=== PATIENT | female | born 1960 | race African-American/Black ===

== ENCOUNTER 2018-01-06 11:34 | Emergency (ER) | payer OTHER ==
[~2018-01-06] VITALS: Ht 170.2 cm; Wt 98.0 kg
[~2018-01-06 11:34] MED LIST: MULTCAP OR
[2018-01-06 11:47] VITALS: BP 177/83; PULSE 61; RESP 16; TEMP 98.3; O2SAT 100
--- NOTE | 2018-01-06 11:52 | PD ---
HPI Chief Complaint: Chest Pain Time Seen by Provider: 11:41 Travel History International Travel<30 days: No Contact w/Intl Traveler<30days: No Traveled to known affect area: No History of Present Illness HPI 57-year-old female presents to the ED for evaluation of 5/10 squeezing substernal chest pain. Onset approximately 25 minutes ago. Patient states pain occurred at rest. 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 Patient denies history of hypertension. She denies palpitations, nausea, vomiting, shortness of breath, diaphoresis. She has never smoked. No history of diabetes. Denies familial history of cardiac arrest. The patient states that she took a Xenadrine OTC weight loss medication this morning. She states that she takes it intermittently. PFSH Past Medical History Blood Disorders: No Cancer: No Cardiovascular Problems: No Endocrine: No Genitourinary: No Immune Disorder: No Musculoskeletal: No Neurologic: No Psychiatric: No Reproductive: No Respiratory: No ?: Not : 5 Para: 3 Miscarriage: 0 : 2 Past Surgical History Body Medical Devices: breast implants Section: Yes Social History Alcohol Use: No (OCCL) Tobacco Use: No Substance Use: No Allergies-Medications (Allergen,Severity, Reaction): Coded Allergies: No Known Allergies (Unverified Adverse Reaction, Unknown, 01/06/18) Reported Meds & Prescriptions Reported Meds & Active Scripts Active Omeprazole 10 Mg Cap 10 Mg PO DAILY Review of Systems Except as stated in HPI: all other systems reviewed are Neg Physical Exam Narrative GENERAL: Well-nourished, well-developed female no acute distress. SKIN: Focused skin assessment warm/dry. HEAD: Normocephalic. EYES: No scleral icterus. No injection or drainage. NECK: Supple, trachea midline. No JVD or lymphadenopathy. CARDIOVASCULAR: Regular rate and rhythm without murmurs, gallops, or rubs. CHEST: Nontender throughout without deformity or crepitus. RESPIRATORY: Breath sounds clear and equal bilaterally. No accessory muscle use. GASTROINTESTINAL: Abdomen soft, non-tender, nondistended. Active bowel sounds. MUSCULOSKELETAL: No cyanosis, or edema. Moves extremities spontaneously. Observed to walk with a normal gait. BACK: Nontender without obvious deformity. No CVA tenderness. Data Data Last Documented VS Vital Signs Date Time Temp Pulse Resp B/P (MAP) Pulse Ox O2 Delivery O2 Flow Rate FiO2 01/06/18 12:26 61 16 153/85 (107) 100 Room Air 01/06/18 11:47 98.3 Orders Orders Electrocardiogram (01/06/18 ) Ckmb (Isoenzyme) Profile (01/06/18 11:49) Complete Blood Count With Diff (01/06/18 11:49) Comprehensive Metabolic Panel (01/06/18 11:49) Magnesium (Mg) (01/06/18 11:49) Prothrombin Time / Inr (Pt) (01/06/18 11:49) Act Partial Throm Time (Ptt) (01/06/18 11:49) Troponin I (01/06/18 11:49) Ecg Monitoring (01/06/18 11:49) Bilateral Bp Monitoring (01/06/18 11:49) Iv Access Insert/Monitor (01/06/18 11:49) Oximetry (01/06/18 11:49) Aspirin (Aspirin) (01/06/18 12:00) Nitroglycerin 2% Oint (Nitroglycerin 2% (01/06/18 12:00) Sodium Chloride 0.9% Flush (Ns Flush) (01/06/18 12:00) Sodium Chlorid 0.9% 500 Ml Inj (Ns 500 M (01/06/18 12:00) Chest, Pa & Lat (01/06/18 11:49) CKMB (01/06/18 12:00) CKMB% (01/06/18 12:00) Labs Laboratory Tests Test 01/06/18 12:00 White Blood Count 4.3 TH/MM3 Red Blood Count 4.42 MIL/MM3 Hemoglobin 12.9 GM/DL Hematocrit 39.0 % Mean Corpuscular Volume 88.2 FL Mean Corpuscular Hemoglobin 29.3 PG Mean Corpuscular Hemoglobin Concent 33.2 % Red Cell Distribution Width 14.2 % Platelet Count 208 TH/MM3 Mean Platelet Volume 8.2 FL Neutrophils (%) (Auto) 36.2 % Lymphocytes (%) (Auto) 51.7 % Monocytes (%) (Auto) 9.9 % Eosinophils (%) (Auto) 1.8 % Basophils (%) (Auto) 0.4 % Neutrophils # (Auto) 1.5 TH/MM3 Lymphocytes # (Auto) 2.2 TH/MM3 Monocytes # (Auto) 0.4 TH/MM3 Eosinophils # (Auto) 0.1 TH/MM3 Basophils # (Auto) 0.0 TH/MM3 CBC Comment DIFF FINAL Differential Comment Prothrombin Time 10.3 SEC Prothromb Time International Ratio 1.0 RATIO Activated Partial Thromboplast Time 26.1 SEC Blood Urea Nitrogen 14 MG/DL Creatinine 0.96 MG/DL Random Glucose 96 MG/DL Total Protein 7.5 GM/DL Albumin 4.0 GM/DL Calcium Level 9.1 MG/DL Magnesium Level 2.3 MG/DL Alkaline Phosphatase 88 U/L Aspartate Amino Transf (AST/SGOT) 26 U/L Alanine Aminotransferase (ALT/SGPT) 32 U/L Total Bilirubin 0.3 MG/DL Sodium Level 142 MEQ/L Potassium Level 3.9 MEQ/L Chloride Level 108 MEQ/L Carbon Dioxide Level 26.2 MEQ/L Anion Gap 8 MEQ/L Estimat Glomerular Filtration Rate 72 ML/MIN Total Creatine Kinase 188 U/L Creatine Kinase MB 1.5 NG/ML Troponin I LESS THAN 0.02 NG/ML MDM Medical Decision Making Medical Screen Exam Complete: Yes Emergency Medical Condition: Yes Differential Diagnosis Chest pain versus GERD versus medication side effect versus ACS versus other Narrative Course 57-year-old female presents to the ED for evaluation of 5/10 squeezing substernal chest pain occurring at rest, 25 minutes ago. The patient denies palpitations, nausea, vomiting, shortness of breath, diaphoresis. She has never smoked. No history of diabetes. Denies familial history of cardiac arrest. The patient states that she took a Xenadrine OTC weight loss medication this morning. Heart rate 61, BP 177/83 on presentation. Chest CTA B. Abdomen soft and nontender on exam. IV was established. Patient was administered 325 mg aspirin, 1 inch nitroglycerin paste was applied to the chest. EKG rate 55, sinus bradycardia. OK interval 171, QRS 89, QTC 405 ms. Normal axis. No acute ST changes. Reviewed by Dr. Oneill. CXR: No acute intrathoracic disease per radiology read. Cardiac enzymes negative 1. CBC unremarkable. CMP without concerning abnormalities. INR: 1.1. I reviewed the patient's record. She had a negative stress test in 2004. On recheck patient states that her pain has completely resolved. I discussed the results of the workup with the patient. I recommended that she stay in the chest pain center overnight for serial cardiac enzymes and EKGs. Patient refuses admission at this time. I explained to the patient that I am unable to stratify her risk for CT without further testing. She indicated understanding of the risks, but still declines admission to the hospital. She is provided with a trial of omeprazole and instructed to follow-up with her primary care, Dr. Horn, this week for further evaluation and referral to triage technician. She indicated understanding of the discharge instructions. She is agreeable to the care plan. The patient is stable and discharged home. Diagnosis Primary Impression: Chest pain at rest Referrals: Roof Truss Builder Primary Care Physician Patient Instructions: Chest Pain (ED), General Instructions Additional Instructions: Rest, hydrate. Return to normal, gentle activities as tolerated. Avoid stimulants such as diet pills, excessive caffeine. Take omeprazole daily as prescribed. Follow up with your primary care and the triage technician as discussed. Return to the ED for worsening symptoms or any urgent or emergent medical condition. Med/Other Pt SpecificInfo: Prescription(s) given Scripts Omeprazole (Omeprazole) 10 Mg Cap 10 MG PO DAILY, #30 CAP 0 Refills Prov: Fernando Oneill MD 01/06/18 Disposition: 07 AGAINST MEDICAL ADVICE Condition: Stable Josee Saab January 06, 2018 11:52
[2018-01-06 11:57] VITALS: RESP 20; O2SAT 100
[2018-01-06] MEDS ORDERED: SODIUM CHLORIDE 0.9% FLUSH 10 ML FLUSH IVF PRN (12:00)
[2018-01-06] MEDS ORDERED: NITROGLYCERIN 2% OINT 1 GM PACKET TOP ONE (12:00)
[2018-01-06] MEDS ORDERED: SODIUM CHLORID 0.9% 500 ML INJ 500 ML IV ONE (12:00)
[2018-01-06] MEDS ORDERED: ASPIRIN 325 MG TAB PO ONE (12:00)
[2018-01-06 12:12] LABS: AUTOMATED NEUTROPHIL # 1.5 TH/MM3 (1.8-7.7); BASOPHIL % 0.4 % (0.0-2.0); EOSINOPHIL # 0.1 TH/MM3 (0-0.4); EOSINOPHIL % 1.8 % (0.0-4.0); HEMOGLOBIN 12.9 GM/DL (11.6-15.3); LYMPH % 51.7 % (9.0-44.0); LYMPHOCYTE # 2.2 TH/MM3 (1.0-4.8); MEAN CELL VOLUME 88.2 FL (80.0-100.0); MEAN CORPUSCULAR HEMOGLOBIN 29.3 PG (27.0-34.0); MEAN CORPUSCULAR HGB CONC 33.2 % (32.0-36.0); MEAN PLATELET VOLUME 8.2 FL (7.0-11.0); MONO % 9.9 % (0.0-8.0); MONOCYTE # 0.4 TH/MM3 (0-0.9); NEUT % 36.2 % (16.0-70.0); PLATELET COUNT 208 TH/MM3 (150-450); RED BLOOD COUNT 4.42 MIL/MM3 (4.00-5.30); RED CELL DISTRIBUTION WIDTH 14.2 % (11.6-17.2); WHITE BLOOD COUNT 4.3 TH/MM3 (4.0-11.0)
[2018-01-06 12:26] VITALS: BP 153/85; PULSE 61; RESP 16; O2SAT 100
[2018-01-06 12:26] LABS: AST (GOT) 26 U/L (15-37); BICARBONATE 26.2 MEQ/L (21.0-32.0); BLOOD UREA NITROGEN 14 MG/DL (7-18); CALCIUM 9.1 MG/DL (8.5-10.1); CHLORIDE 108 MEQ/L (98-107); CREATININE 0.96 MG/DL (0.50-1.00); GLOMERULAR FILTRATION RATE 72 ML/MIN (>89); GLUCOSE,RANDOM 96 MG/DL (74-106); MAGNESIUM 2.3 MG/DL (1.5-2.5); SODIUM (NA) 142 MEQ/L (136-145)
[2018-01-06 12:27] LABS: ALT (GPT) 32 U/L (10-53)
[2018-01-06 12:30] LABS: ALKALINE PHOSPHATASE 88 U/L (45-117); TOTAL BILIRUBIN ADULT 0.3 MG/DL (0.2-1.0); TOTAL PROTEIN 7.5 GM/DL (6.4-8.2); TROPONIN I LESS THAN 0.02 NG/ML (0.02-0.05)
--- NOTE | 2018-01-06 12:30 | RADRPT ---
EXAM DATE/TIME: 01/06/2018 12:15 [facility] COMPARISON: No previous studies available for comparison. INDICATIONS : Chest pain today, no shortness of breath, nonsmoker MEDICAL HISTORY : None. SURGICAL HISTORY : None. ENCOUNTER: Initial ACUITY: 1 day PAIN SCORE: 10/10 LOCATION: Bilateral chest FINDINGS: PA and lateral views of the chest demonstrate the lungs to be symmetrically aerated without evidence of mass, infiltrate or effusion. The cardiomediastinal contours are unremarkable. Osseous structure s are intact. CONCLUSION: No acute intrathoracic disease. Junaid Mckinney MD on January 06, 2018 at 12:28 Board Certified Radiologist. This report was verified electronically.
[2018-01-06 12:31] LABS: PROTHROMBIN TIME - PATIENT 10.3 SEC (9.8-11.6)
[2018-01-06] MEDS ORDERED: OMEP10CA PO (13:15)
--- NOTE | 2018-01-06 13:25 | PD ---
Data Data Last Documented VS Vital Signs Date Time Temp Pulse Resp B/P (MAP) Pulse Ox O2 Delivery O2 Flow Rate FiO2 01/06/18 12:26 61 16 153/85 (107) 100 Room Air 01/06/18 11:47 98.3 Orders Orders Electrocardiogram (01/06/18 ) Ckmb (Isoenzyme) Profile (01/06/18 11:49) Complete Blood Count With Diff (01/06/18 11:49) Comprehensive Metabolic Panel (01/06/18 11:49) Magnesium (Mg) (01/06/18 11:49) Prothrombin Time / Inr (Pt) (01/06/18 11:49) Act Partial Throm Time (Ptt) (01/06/18 11:49) Troponin I (01/06/18 11:49) Ecg Monitoring (01/06/18 11:49) Bilateral Bp Monitoring (01/06/18 11:49) Iv Access Insert/Monitor (01/06/18 11:49) Oximetry (01/06/18 11:49) Aspirin (Aspirin) (01/06/18 12:00) Nitroglycerin 2% Oint (Nitroglycerin 2% (01/06/18 12:00) Sodium Chloride 0.9% Flush (Ns Flush) (01/06/18 12:00) Sodium Chlorid 0.9% 500 Ml Inj (Ns 500 M (01/06/18 12:00) Chest, Pa & Lat (01/06/18 11:49) CKMB (01/06/18 12:00) CKMB% (01/06/18 12:00) Labs Laboratory Tests Test 01/06/18 12:00 White Blood Count 4.3 TH/MM3 Red Blood Count 4.42 MIL/MM3 Hemoglobin 12.9 GM/DL Hematocrit 39.0 % Mean Corpuscular Volume 88.2 FL Mean Corpuscular Hemoglobin 29.3 PG Mean Corpuscular Hemoglobin Concent 33.2 % Red Cell Distribution Width 14.2 % Platelet Count 208 TH/MM3 Mean Platelet Volume 8.2 FL Neutrophils (%) (Auto) 36.2 % Lymphocytes (%) (Auto) 51.7 % Monocytes (%) (Auto) 9.9 % Eosinophils (%) (Auto) 1.8 % Basophils (%) (Auto) 0.4 % Neutrophils # (Auto) 1.5 TH/MM3 Lymphocytes # (Auto) 2.2 TH/MM3 Monocytes # (Auto) 0.4 TH/MM3 Eosinophils # (Auto) 0.1 TH/MM3 Basophils # (Auto) 0.0 TH/MM3 CBC Comment DIFF FINAL Differential Comment Prothrombin Time 10.3 SEC Prothromb Time International Ratio 1.0 RATIO Activated Partial Thromboplast Time 26.1 SEC Blood Urea Nitrogen 14 MG/DL Creatinine 0.96 MG/DL Random Glucose 96 MG/DL Total Protein 7.5 GM/DL Albumin 4.0 GM/DL Calcium Level 9.1 MG/DL Magnesium Level 2.3 MG/DL Alkaline Phosphatase 88 U/L Aspartate Amino Transf (AST/SGOT) 26 U/L Alanine Aminotransferase (ALT/SGPT) 32 U/L Total Bilirubin 0.3 MG/DL Sodium Level 142 MEQ/L Potassium Level 3.9 MEQ/L Chloride Level 108 MEQ/L Carbon Dioxide Level 26.2 MEQ/L Anion Gap 8 MEQ/L Estimat Glomerular Filtration Rate 72 ML/MIN Total Creatine Kinase 188 U/L Creatine Kinase MB 1.5 NG/ML Troponin I LESS THAN 0.02 NG/ML MDM Supervised Visit with DB: Yes Narrative Course I, Dr. Oneill, have reviewed the advance practice practitioner's documentation and am in agreement, met with the patient face to face, made the diagnosis, and the medical decision making was done by me. *My assessment and Findings: I had extensive discussion with the patient. She came in with substernal pressure. We have recommended chest pain center observation to rule out cardiac cause of her symptoms but she is declining. She is going to sign out AGAINST MEDICAL ADVICE. I reviewed the workup which is negative but she will still need a cardiac eval. Diagnosis Primary Impression: Chest pain at rest Referrals: Technical Illustrator Primary Care Physician Patient Instructions: General Instructions, Chest Pain (ED) Additional Instruction: Rest, hydrate. Return to normal, gentle activities as tolerated. Avoid stimulants such as diet pills, excessive caffeine. Take omeprazole daily as prescribed. Follow up with your primary care and the pharmacy stock clerk as discussed. Return to the ED for worsening symptoms or any urgent or emergent medical condition. Scripts Omeprazole (Omeprazole) 10 Mg Cap 10 MG PO DAILY, #30 CAP 0 Refills Prov: Fernando Oneill MD 01/06/18 Disposition: 07 AGAINST MEDICAL ADVICE Condition: Stable Fernando Oneill MD January 06, 2018 13:25
[2018-01-06 14:48] VITALS: BP 138/82; PULSE 60; RESP 16; O2SAT 100
--- NOTE | 2018-01-07 08:14 | EKG ---
Date Performed: 01/06/2018 Time Performed: 11:41:50 PTAGE: 57 years EKG: SINUS BRADYCARDIA MINIMAL VOLTAGE CRITERIA FOR LVH, CONSIDER NORMAL VARIANT BORDERLINE ECG PREVIOUS TRACING : 04/11/2012 20.36 DOCTOR: Laura Latif Interpretating Date/Time 01/07/2018 08:13:41
== END 2018-01-06 14:50 | disposition left against medical advice (07) ==
LOC: NEPC 11:34
DX: R07.89 Other chest pain (principal); R00.1 Bradycardia, unspecified
CPT/HCPCS: 71046; 80053; 82550; 82552; 83735; 84484; 85025; 85610; 85730; 93005; 96360; 96361; 99285; J7040